=== PATIENT | male | born 1980 | race African-American/Black ===

== ENCOUNTER 2025-02-19 16:01 | Emergency (ER) | payer OTHER, SELFPAY ==
[2025-02-19] VITALS (22 sets, daily range): BP systolic 170–215; BP diastolic 93–119; PULSE 58–81; RESP 11–24; O2SAT 95–100
--- NOTE | 2025-02-19 15:45 | RT.EKG_ITS ---
APPROVED REPORT Exam: Resting ECG Reason for Exam: chest pain Patient Location: E HR:69 bpm ECG Measurements Heart Rate 69 AXIS KS 151 P 59 QRSd 84 QRS 54 QT 406 T 20 QTc 435 Conclusion Sinus rhythm...normal P axis, V-rate 60- 99 Consider left ventricular hypertrophy...(S V1+R V5/V6) >3.50mV ST elev, probable normal early repol pattern...ST elevation, age<55 Sinus rhythm with left ventricular hypertrophy and non specific T wave abnormality. No prior for comparrison. WD
[2025-02-19 16:22] LABS: Abs Immature Grans 0.04 10^3/uL (0.0-0.06); HCT 44.7 % (40.0-50.0); HGB 15.2 g/dL (13.5-17.5); Immature Grans % 0.3 %; MCH 31.1 pg (27.0-33.0); MCHC 34.0 % (32.0-36.0); MCV 91 fL (80-95); MPV 8.7 fL (8.0-11.0); Platelet Count 336 10^3/uL (130-400); RBC 4.89 10^6/uL (4.36-5.78); RDW 13.2 % (11.8-14.1); RDW-SD 44.7 fL; WBC 12.15 10^3/uL (4.4-10.8)
[2025-02-19 16:45] LABS: ALT 40 U/L (16-63); AST 27 U/L (15-37); Albumin 4.2 g/dL (3.4-5.0); Alkaline Phosphatase 102 U/L (46-116); Anion Gap 9.5 mmol/L (3-11); BUN 11 mg/dL (7-18); Bilirubin, Total 0.7 mg/dL (0.2-1.0); CO2 28.5 mmol/L (21.0-32.0); Calcium 10.1 mg/dL (8.5-10.1); Chloride 100 mmol/L (98-107); Estimated GFR 94.00 (mL/min/1.73m2); Glucose 88 mg/dL (74-106); Lipase 46 U/L (<78); Potassium 4.0 mmol/L (3.5-5.1); Sodium 138 mmol/L (136-145); Total Protein 7.8 g/dL (6.4-8.2); Troponin I 18 ng/L (<or=76)
[2025-02-19] MEDS: Orphenadrine 60 MG/2 ML VIAL IVP (16:53)
[2025-02-19] MEDS: Ketorolac 15 MG/ML VIAL 7.5 MG IVP (16:53)
[2025-02-19] MEDS: ACETAMINOPHEN 1,000 MG/100 ML BTL 400 MG IVPB (16:53)
[2025-02-19 17:04] LABS: D-Dimer 419 ng/mlFEU (<500)
--- NOTE | 2025-02-19 17:15 | DI.RAD_ITS ---
Exam(s) XR RIBS LT W PA LAT CHEST EXAM: XR RIBS LT W PA LAT CHEST CLINICAL HISTORY: left rib pain. TECHNIQUE: 2D digital imaging was performed. COMPARISON: No exams were available for comparison FINDINGS: Total 6 views: Left ribs-limited four views: There are no left rib fractures identified. No left rib lesions. Chest x-ray-two views: Heart size normal. Mediastinum not widened. Lungs are clear with no infiltrates nor pleural effusions. No obvious fractures. No pneumothorax. IMPRESSION: No obvious left rib fractures on this limited four view study No acute pulmonary findings. No lung contusion. No pneumothorax. No pleural effusion. DATA REPOSITORY: RADIATION DOSE DELIVERED:
--- NOTE | 2025-02-19 18:51 | DI.VRAD_ITS ---
PROCEDURE INFORMATION: Exam: XR Left Ribs Exam date and time: 02/19/2025 5:36 PM Age: 44 years old Clinical indication: Other: Left rib pain TECHNIQUE: Imaging protocol: Radiologic exam of the left ribs. Views: 2 views. COMPARISON: No relevant prior studies available. FINDINGS: Bones/joints: Normal. Soft tissues: Normal. IMPRESSION: No evidence for acute abnormality. PROCEDURE INFORMATION: Exam: XR Chest Exam date and time: 02/19/2025 5:36 PM Age: 44 years old Clinical indication: Other: Left rib pain TECHNIQUE: Imaging protocol: Radiologic exam of the chest. Views: 2 views. COMPARISON: No relevant prior studies available. FINDINGS: Lungs: Unremarkable. No consolidation. Pleural spaces: Unremarkable. No pleural effusion. No pneumothorax. Heart/Mediastinum: Unremarkable. No cardiomegaly. Bones/joints: Unremarkable. IMPRESSION: No evidence for acute abnormality in the chest. Dictated and Authenticated by: Krysta Ventura MD. Orderin Elizabeth Hebert MD
[2025-02-19] MEDS: Cyclobenzaprine 10 MG TAB, 3 TABS/BTL PO (19:03)
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
== END 2025-02-19 19:10 | disposition home or self-care (01) ==
PROVIDERS: Emergency Provider Physician Assistant
DX: R07.89 Other chest pain (principal); I10 Essential (primary) hypertension; E78.5 Hyperlipidemia, unspecified; F17.200 Nicotine dependence, unspecified, uncomplicated; Z82.49 Family history of ischemic heart disease and other diseases of the circulatory system
CPT/HCPCS: 36415; 80053; 83690; 93005; 96374; 96375; 99285; J2360; 71046; 71100; 84484; 85025; 85379; 93010; 99284; J0131; J1885